=== PATIENT | female | born 1950 | race Two or more races ===

== ENCOUNTER 2018-10-21 14:38 | Emergency (ER) | payer SELFPAY ==
[~2018-10-21] VITALS: Ht 157.5 cm; Wt 89.4 kg
[2018-10-21] MEDS ORDERED: NAPROXEN 500 MG TABLET PO STA (15:08)
[2018-10-21] MEDS ORDERED: predniSONE 10 MG TABLET PO ONE (15:15)
[2018-10-21] MEDS ORDERED: HYDROcodone/APAP 5/325MG 1 TAB TABLET PO ONE (15:15)
[2018-10-21] MEDS ORDERED: diazePAM 5 MG TABLET PO ONE (15:15)
--- NOTE | 2018-10-21 15:33 | PHYS DOC ---
Past Medical History Past Medical History: Depression Additional Past Medical Histor: gastritis Past Surgical History: Tubal ligation Additional Past Surgical Histo: knee, hand, shoulder Alcohol Use: None Drug Use: None Adult General Chief Complaint Chief Complaint: HIP PAIN HPI HPI Patient is a 68 year old female with a history of depression and chronic bilateral hip pain who presents to the ED today complaining of exacerbation of chronic bilateral hip pain. Patient rates the pain at 10 out of 10. Describes the pain as sharp and constant, states the pain began this morning, denies any known injury. States pain is worse on certain movements. Patient states she has not taken anything for her pain. Car Body Inspector line used for [place] Review of Systems Review of Systems Constitutional: Denies fever or chills [] GI: Denies abdominal pain, nausea, vomiting, bloody stools or diarrhea [] : Denies dysuria or hematuria [] Musculoskeletal: reports bilateral hip pain Integument: Denies rash or skin lesions [] Neurologic: Denies headache, focal weakness or sensory changes [] All other systems were reviewed and found to be within normal limits, except as documented in this note. Current Medications Current Medications Current Medications Medications (Trade) Dose Ordered Sig/Georgette Start Time Stop Time Status Last Admin Dose Admin Acetaminophen/ Hydrocodone Bitart (Lortab 5/325) 2 tab 1X ONCE 10/21/18 15:15 10/21/18 15:16 DC 10/21/18 15:17 2 TAB Diazepam (Valium) 5 mg 1X ONCE 10/21/18 15:15 10/21/18 15:16 DC 10/21/18 15:18 5 MG Naproxen (Naprosyn) 500 mg 1X STAT 10/21/18 15:08 10/21/18 15:12 DC 10/21/18 15:17 500 MG Prednisone (Prednisone) 50 mg 1X ONCE 10/21/18 15:15 10/21/18 15:16 DC 10/21/18 15:18 50 MG Allergies Allergies Allergies Coded Allergies Type Severity Reaction Last Updated Verified No Known Drug Allergies 10/21/18 No Physical Exam Physical Exam Constitutional: Well developed, well nourished, no acute distress, non-toxic appearance. [] HENT: Normocephalic, atraumatic, bilateral external ears normal, oropharynx moist, no oral exudates, nose normal. [] Eyes: PERRLA, EOMI, conjunctiva normal, no discharge. [] Neck: Normal range of motion, no tenderness, supple, no stridor. [] Cardiovascular:Heart rate regular rhythm, no murmur [] Lungs & Thorax: Bilateral breath sounds clear to auscultation [] Abdomen: Bowel sounds normal, soft, no tenderness, no masses, no pulsatile masses. [] Skin: Warm, dry, no erythema, no rash. [] Back: No tenderness, no CVA tenderness. [] Extremities:diffuse tenderness to bilateral hips, Full ROM to bilateral lower extremities, no cyanosis, no clubbing,no edema. Neurologic: Alert and oriented X 3, normal motor function, normal sensory function, no focal deficits noted. [] Psychologic: Affect normal, judgement normal, mood normal. [] Current Patient Data Vital Signs Vital Signs Date Time Temp Pulse Resp B/P (MAP) Pulse Ox O2 Delivery O2 Flow Rate FiO2 10/21/18 15:00 97.5 70 16 156/74 (101) 100 Room Air 97.5 EKG EKG [] Radiology/Procedures Radiology/Procedures [] Course & Med Decision Making Course & Med Decision Making Pertinent Labs and Imaging studies reviewed. (See chart for details) Patient has chronic hip pain bilaterally. Treated for pain in the ED. D/C with pain medicine. F/u with PCP next week. Eri Disclaimer Eri Disclaimer This electronic medical record was generated, in whole or in part, using a voice recognition dictation system. Departure Departure Impression: Primary Impression: Hip pain, chronic Disposition: 01 HOME, SELF-CARE Condition: STABLE Referrals: NO PCP (PCP) follow up with your doctor next week Patient Instructions: Hip Pain Additional Instructions: You have chronic hip pain. Please use the medications provided as ordered. Follow up with your doctor next week Scripts Cyclobenzaprine Hcl (CYCLOBENZAPRINE HCL) 10 Mg Tablet 1 TAB PO TID, #30 TAB Prov: TASHA TRAN APRN 10/21/18 Diclofenac Sodium (DICLOFENAC SODIUM) 50 Mg Tablet.dr 1 TAB PO BID, #20 TAB 1 Refill Prov: MUTUNGA,TASHA SALES [employer]CH MANAGER 10/21/18 Methylprednisolone (MEDROL) 4 Mg Tab.ds.pk 1 PKG PO UD, #1 PKG Prov: DILCIAUNGATASHA [employer] MANAGER 10/21/18 Hydrocodone/Apap 5-325 (NORCO 5-325 TABLET) 1 Each Tablet 1 TAB PO Q6HRS, #20 TAB Prov: TASHA TRAN APRN 10/21/18 Problem Qualifiers Primary Impression: Hip pain, chronic Laterality: bilateral Qualified Codes: M25.551 - Pain in right hip; M25.552 - Pain in left hip; G89.29 - Other chronic pain TASHA TRAN APRN Oct 21, 2018 15:33
[2018-10-21] MEDS ORDERED: DICL50TA4 PO (15:46)
[2018-10-21] MEDS ORDERED: METH4TAB2 PO (15:46)
[2018-10-21] MEDS ORDERED: HYDR-3164 PO (15:46)
[2018-10-21] MEDS ORDERED: CYCL10TA2 PO (15:46)
[2018-10-21 16:05] VITALS: BP 158/74
== END 2018-10-21 16:12 | disposition home or self-care (01) ==
LOC: ER 14:38
DX: G89.29 Other chronic pain (principal); M25.551 Pain in right hip; M25.552 Pain in left hip; F32.9 Major depressive disorder, single episode, unspecified; Z98.51 Tubal ligation status
CPT/HCPCS: 99284; J7512